=== PATIENT | female | born 2000 | race Two or more races ===

== ENCOUNTER 2023-03-04 12:18 | Emergency (ER) | payer OTHER ==
[~2023-03-04] VITALS: Ht 160 cm; Wt 64.4 kg
[2023-03-04] MEDS ORDERED: XYZAL5 MG PO (14:04)
== END 2023-03-04 14:39 | disposition home or self-care (01) ==
LOC: ER 12:19
DX: T78.49XA Other allergy, initial encounter (principal)